=== PATIENT | female | born 1960 | race Caucasian/White ===

== ENCOUNTER 2024-10-06 13:25 | Outpatient (CLI) | payer MEDICARE, SELFPAY ==
--- NOTE | 2024-10-06 13:43 | ECG_ITS ---
Test Date: 2024-10-06 13:50:48 Measurements Intervals [place] Rate: 60 P: 60 CA: 189 QRS: 18 QRSD: 89 T: 30 QT: 432 QTc: 433 Interpretive Statements SINUS RHYTHM POSSIBLE RIGHT VENTRICULAR CONDUCTION DELAY BORDERLINE T WAVE ABNORMALITY- ANTERIOR LEADS BORDERLINE ECG No previous ECG available for comparison Electronically Signed On 10-06-2024 13:52:28 CDT by Lazaro Mata D.O.
--- OUTSIDE RECORDS SUMMARY | 2024-10-06 14:44 | XMS_ITS | Encounter Summary ---
Author Organization [employer] [facility] Address [address] [place] [address] Care Team Providers Care Block Out Machine Operator Name Role Phone Que Wallace MD Primary Care Provider [phone] Encounter Details Date Type Department Care Team (Latest Contact Info) Description 11/27/2000 Outpatient Historical [facility] Krystian Marcelo MD NO ADDRESS ON FILE Nonspecific (abnormal) findings on radiological and other examination of musculoskeletal system (Primary Dx) Social History Tobacco Use Types Packs/Day Years Used Date Smoking Tobacco: Never Assessed Comments Unknown Sex and Gender Information Value Date Recorded Sex Assigned at Not on file Legal Sex Female 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
--- OUTSIDE RECORDS SUMMARY | 2024-10-06 14:44 | XMS_ITS ---
Author Organization [facility] Address [address] [place] [address] Care Team Providers Care Application Support Administrator Name Role Phone Griffin Pascual Unavailable [phone] Social Media, Social Media Unavailable Unava ilable Deborah OSBORNE, Elzbieta Unavailable Allergies Allergen (clinical drug ingredient) Drug/Non Drug Allergy documented on EMR Reaction Allergy Type Onset Date Status moxifloxacin Avelox hives Drug Allergy Acti ve Levaquin hives Drug Allergy Active cephalexin Cephalexin nausea and vomiting Drug Allergy Active erythromycin Erythromycin diarrhea Drug Allergy A ctive Latex Latex anaphylaxis Allergy Active REASON FOR VISIT Telemedicine visit for medication renewal, c/o fibromyalgia pain, pain all over Medications Medication SIG (Take, Route, Frequency, Duration) Notes Start Date End Date Status Cyclobenzaprine HCl 10 MG 1 tablet Oral three times a day for 30 days As needed Active fentaNYL 12 MCG/HR 1 patch to skin Transdermal every 72 hours for 30 days NEEDS MYLAN BRAND DO NOT MARCK UNTIL 09/15/24 09/01/2024 Active Narcan 4 MG/0.1ML as directed Nasally for 1 days 05/27/2024 Active Lidocaine 5 % apply 4 g Externally Three times a day for 30 days 1 application to posterior neck and shoulder 3 x a day. Max 20g/ day. ovoid prolonged use in same area 06/17/2024 Active Repatha 140 MG/ML Subcutaneous for 84 Days Active Meclizine HCl 25 MG Oral for 10 Days Active Dupixent 300 MG/2ML Subcutaneous for 28 Days Active Sertraline HCl 100 MG Oral for 90 Days Active Lisinopril 5 MG Oral for 90 Days Active Celecoxib 100 MG Oral for 90 Days Active Gabapentin 100 MG TAKE 1 CAPSULE BY MOUTH TWICE A DAY NEEDED Oral for 30 Days Active Albuterol Sulfate HFA 108 (90 Base) MCG/ACT Inhalation for 25 Days Active Advair Diskus 250-50 MCG/ACT INHALE 1 PUFF BY MOUTH TWICE DAILY. RINSE MOUTH WITH WATER AFTER USE. DO NOT SWALLOW Inhalation for 30 Days Active Social History Tobacco Use: Social History Observation Description Date Details (start date - stop date) Former Smoker NA - NA Tobacco Control (Standard) Question Answer Notes Tobacco use: Former smoker Section Notes: SOAPP and COMM scores today low risk. 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 ; Lumbar pain M54.50 ; Thoracic spondylosis M47.814 ; Chronic pain syndrome G89.4 ; Cervical spondylosis M47.812 ; Leg length discrepancy M21.70 ; 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 ; Asthma J45.909 ; Hypertension I10 ; Other termite control service representative (current) drug therapy Z79.899 and 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 Assessments Encounter Date Diagnosis (ICD Code) Assessment Notes Treatment Notes Treatment Clinical Notes Section Notes 09/29/2024 Spondylolisthesis , lumbar region (ICD-10 - M43.16) 09/29/2024 Myalgia, other site (ICD-10 - M79.18) 09/29/2024 Congenital shortening of left lower limb (ICD-10 - Q72.812) 09/29/2024 Lumbar pain (ICD-10 - M54.50) 09/29/2024 Thoracic spondylosis (ICD-10 - M47.814) 09/29/2024 Chronic pain syndrome (ICD-10 - G89.4) Prescription for controlled substance sent to supervising physician for renewal 09/29/2024 Cervical spondylosis (ICD-10 - M47.812) 09/29/2024 Leg length discrepancy (ICD-10 - M21.70) 09/29/2024 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) 09/29/2024 Asthma (ICD-10 - J45.909) 09/29/2024 Hypertension (ICD-10 - I10) ICD F32.A-Depressi on: 09/29/2024 Other custodial (current) drug therapy (ICD-10 - Z79.899) 09/29/2024 Thoracic kyphosis (ICD-10 - M40.204) Plan Of Treatment Medication Medication Name Sig Start Date Stop Date Notes Cyclobenzaprine HCl 10 MG 1 tablet Oral three times a day for 30 days Treatment Notes Assessment Notes Chronic pain syndrome Prescription for c ontrolled substance sent to supervising physician for renewal Next Appt Details Follow Up: 4 Weeks, Reason: Provider Name:Elzbieta brooks, 10/27/2024 09:00:00 AM, [address] [place] [address], [address] [address], Progress Notes * Shilpa WAYNE KrunalDOB: [birth year] (64 yo F)Acc No.[id number]:09/29/2024 Patient: Shilpa BOYLE Appointment Provider: ISHAAN Hermosillo :1960 A ge:64 Y S ex:Female Date:09/29/2024 Address:[address] [place], [place] [id number] Subjective: * Chief Complaints: * 1 . Telemedicine visit for medication renewal. 2. C/o fibromyalgia pain, pain all over. * HPI: * Established Patient: Shilpa Wayne gives consent to virtual telemedicine visit today and verbalizes understanding that insurance will be billed accordingly. The visit was conducted through [employer] which is HIPAA compliant. Time was spent conducting visit, renewing and discussing medications, answering questions, reviewing chart and updating medical history, reviewing current treatment options, future treatments and scheduled procedures, pertinent lab vwork, and discussing follow up. Time spent with patient: 12 minutes. she was at home. * Pain Management:: Shilpa Wayne has an appointment for m edication renewal. She has chronic pain secondary to myofascial pain syndrome, hypermobility, rheumatoid arthritis, fibromyalgia. She has a leg length short on the left 12 mm that is lifted to 9 mm. Today her pain is shoulders, head, and neck. ?She rates VAS 4/10. She had radiofrequency ablation of her right thoracic spine T5,6,7,13 February 2024. She has had no falls or hospitalizations. S he will bring a copy of lab work and DEXA scan. Today her pain is low back, neck. She is renewed on Fentanyl 12mcg patches last rx fill was 09/15/24. UDS done 07/21/24 was compliant with medication use. UDS and PDMP are monitored regularly. * ROS: G eneral/Constitutional: Denies Change in appetite, Chills, Fatigue, Fever or Lightheadedness. ENT: Denies Tinnitus or Dysphagia. Ophthalmologic: Denies Blurred vision or change in vision. Neurological: denies gait abnormality, balance difficulty, dizziness, or loss of strength Psychological: denies depressed mood or change in mood Skin: admits skin rash; new dx of lichen systemic chronicus per bx. * Medical History: R heumatoid arthritis, Asthma - mild intermittent, Seasonal Allergies, Osteoarthritis, Depression. * Surgical History: B unionectomy- bilateral 1991, Sinus surgery- complicated by staph infection 2000, cholecystectomy 1980, Iridotomy 2007. * Hospitalization/Major Diagno stic Procedure: N o hospitalization since last visit . * Family History: F ather: 85 yrs, diagnosed with Heart disease. M other: 70 yrs, colon cancer. * Social History: T obacco Use: T obacco Control (Standard) T obacco use: F ormer smoker * Established Patient: S moking D o you smoke? N o Form Scores C ESD-R PMQ-R GPCOG Date 1 08/18/2023 C ESD-R Score 3 8 C ESD-R Risk H igh Risk (36 - 60) P MQ-R Score 3 2 P MQ-R Risk L ow Risk (0 - 34) G PCOG Score 9 G PCOG Risk N o Risk (9) C ESD-R PMQ-R GPCOG Testing Interval H igh Risk (every 2 months) C ESD-R PMQ-R GPCOG Next Test Due 0 08/18/2024 S OAPP Date 0 09/01/2024 S OAPP-R Score 1 4 S OAPP-R Risk L ow to Moderate Risk (10 - 15) S OAPP-R Testing Interval L ow to Moderate Risk (every 3 months) C OMM Date 0 09/01/2024 C OMM Score 5 C OMM Risk N egative (< 9) S OAPP and COMM scores today low risk. * Medications: T aking Albuterol Sulfate HFA 108 (90 Base) MCG/ACT Aerosol Solution Inhalation , Taking Advair Diskus 250-50 MCG/ACT Aerosol Powder Breath Activated INHALE 1 PUFF BY MOUTH TWICE DAILY. RINSE MOUTH WITH WATER AFTER USE. DO NOT SWALLOW Inhalation , Taking Gabapentin 100 MG Capsule TAKE 1 CAPSULE BY MOUTH TWICE A DAY NEEDED Oral , Taking Cyclobenzaprine HCl 10 MG Tablet TAKE 1 TABLET BY MOUTH THREE TIMES A DAY NEEDED Oral , Taking Lisinopril 5 MG Tablet Oral , Taking Celecoxib 100 MG Capsule Oral , Taking Dupixent 300 MG/2ML Solution Pen-injector Subcutaneous , Taking Sertraline HCl 100 MG Tablet Oral , Taking Meclizine HCl 25 MG Tablet Oral , Taking Repatha 140 MG/ML Solution Prefilled Syringe Subcutaneous , Taking Narcan 4 MG/0.1ML Liquid as directed Nasally , Taking Lidocaine 5 % Ointment apply 4 g Externally Three times a day 1 application to posterior neck and shoulder 3 x a day. Max 20g/ day. ovoid prolonged use in same area, Taking fentaNYL 12 MCG/HR Patch 72 Hour 1 patch to skin Transdermal every 72 hours , Notes to Pharmacist: NEEDS MYLAN BRAND DO NOT MARCK UNTIL 09/15/24 * Allergies: L atex: anaphylaxis - Allergy - Criticality Unknown, Levaquin: hives - Allergy - Criticality Unknown, Avelox: hives - Allergy - Criticality Unknown, Cephalexin: nausea and vomiting - Allergy - Criticality Unknown, Erythromycin: diarrhea. Objective: * Vitals: H t: 5 ft 4in, Wt:165lbs, Pain scale:41-10, BMI:28.32Index, Ht-cm: 162.56 cm, Wt- k.84 kg, Body Surface Area: 1.84. * Physical Examination: P atient is alert and oriented x3 in NAD. Questions are answered appropriately. No slurred speech. Respirations are non-labored. Patient sits comfortably during virtual visit today. Assessment: * Assessment: 1. S pondylolisthesis, lumbar region - M43.16 (Primary) 2 . M yalgia, other site - M79.18 3 . C ongenital shortening of left lower limb - Q72.812 ? 4 . L umbar pain - M54.50 5 . T horacic spondylosis - M47.814 & #160; 6 . C hronic pain syndrome - G89.4 7 . C ervical spondylosis - M47.812 8 . L eg length discrepancy - M21.70 9 . E hlers-Danlos syndrome - Q79.60 1 0. A sthma - J45.909 1 1. H ypertension - I10 N otes :ICD F32.A-Depression: 1 2. O ther termite control service representative (current) drug therapy - Z79.899 1 3.?Thoracic kyphosis - M40.204 Plan: * Treatment: 2. C hronic pain syndrome Notes: Prescription for controlled substance sent to supervising physician for renewal * Follow Up: 4 Weeks * Billing Information: * Visit Code: 60988 Office Visit, Est Pt., Level 3. * Procedure Codes: * Electronic signature of ISHAAN Tamayo PA-C on 10/06/2024 at 02:43 PM CDT Sign off status: Pending * Appointment Provider: ISHAAN Hermosillo Date: 0 09/29/2024 Generated for Printing/Faxing/eTransmitting on: 0 10/06/2024 02:43 PM CDT History and Physical Notes * HPI (History of Present Illness) Category Sub-Category Detail Notes Category Not es *Pain Management: Shilpa Wayne has an appointment for medication renewal. She has chronic pain secondary to myofascial pain syndrome, hypermobility, rheumatoid arthritis, fibromyalgia. She has a leg length short on the left 12 mm that is lifted to 9 mm. Today her pain is shoulders, head, and neck. She rates VAS 4/10. She had radiofrequency ablation of her right thoracic spine T5,6,7,13 February 2024. She has had no falls or hospitalizations. She will bring a copy of lab work and DEXA scan. Today her pain is low back, neck. She is renewed on Fentanyl 12mcg patches last rx fill was 09/15/24. UDS done 07/21/24 was compliant with medication use. UDS and PDMP are monitored regularly. *Established Patient Shilpa Wayne gives consent to virtual telemedicine visit today and verbalizes understanding that insurance will be billed accordingly. The visit was conducted through [employer] which is HIPAA compliant. Time was spent conducting visit, renewing and discussing medications, answering questions, reviewing chart and updating medical history, reviewing current treatment options, future treatments and scheduled procedures, pertinent lab vwork, and discussing follow up. Time spent with patient: 12 minutes. she was at home. Physical Examination Category Sub-Category Detail Notes Section Note s Patient is aler t and oriented x3 in NAD. Questions are answered appropriately. No slurred speech. Respirations are non-labored. Patient sits comfortably during virtual visit today.
--- OUTSIDE RECORDS SUMMARY | 2024-10-06 14:44 | XMS_ITS | Encounter Summary ---
Author Organization [facility] Address [address] [place] [address] Care Team Providers Care Rigger Up Name Role Phone , Generic Conversion Primary Care Provider Unavailable Md Generic Conversion Primary Care Provider Unavailable Que Wallace MD Primary Care Provider Unav yany Silva II, MD, Beni Villanueva Primary Care Provider Encounter Details Date Type Department Care Team (Late st Contact Info) Description 12/21/2015 Abstract [facility] AT [address] [facility] [id number] Social History Tobacco Use Types Packs/Day Years Used Date Smoking Tobacco: Never Assessed Comments Unknown Sex and Gender Information Value Date Recorded Sex Assigned at Not on file Legal Sex Female 11:15 AM CDT Gender Identity Not on file Sexual Orientation Not on file documented as of this encounter Plan of Treatment Upcoming Encounters Date Type Department Care Team (Late st Contact Info) Description 10/13/2024 8:30 AM CDT Office Visit [facility] - [place] [address] [place] [phone] Beni Silva II, MD [address] [place] [address] 01/25/2025 9:15 AM CDT Office Visit [facility] [address] [place] [address] Anton Jackson MD Three [facility], [address] [place] [address] 01/26/2025 8:30 AM CDT Office Visit [facility] Family Medicine - [address] [place] [phone] Beni Silva II, MD [address] [place], [place] [phone] documented as of this encounter Visit Diagnoses Not on filedocumented in this encounter Care Teams Rigger Up Relationship Specialty Start Date End Date Md Generic Conversion, PCP - General 12/26/15 Md Generic Conversion, PCP - General 09/17/14 Que Wallace MD PCP - General FAMILY PRACTICE 02/27/21 04/26/21 Beni Silva II, MD [address] [place] [phone] PCP - General FAMILY PRACTICE 04/27/21 documented as of this encounter
--- OUTSIDE RECORDS SUMMARY | 2024-10-06 14:44 | XMS_ITS | Encounter Summary ---
Author Organization [facility] Address 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
--- OUTSIDE RECORDS SUMMARY | 2024-10-06 14:44 | XMS_ITS | Encounter Summary ---
Author Organization [employer] [facility] [facility] Address 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
--- OUTSIDE RECORDS SUMMARY | 2024-10-06 14:44 | XMS_ITS | Encounter Summary ---
Author Organization [employer] [facility] Address 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 Gender Identity Not on file Sexual Orientation Not on file documented as of this encounter Plan of Treatment Not on file documented as of this encounter Procedures Procedure Name Priority Date/Time Associated Diagnosis Comments POC CREATININE Routine 07/23/2008 10:53 AM FIBER PRODUCT CUTTING MACHINE OPERATOR documented in this encounter Results * (ABNORMAL) POC CREATININE (07/23/2008 10:53 AM FIBER PRODUCT CUTTING MACHINE OPERATOR) CREATININE POC 1.1 0.6 - 1.3 mg/dL [facility] Comment: The calculation for the estimated GFR on the i-STAT POC instrument has been changed to correspond to the IDMS-traceable MDRD Study, upon the recommendation of the assistant operator of the i-STAT instrument. The change was effective in our laboratory 06/14/2008. The impact of this change to the estimated GFR is minimal. This calculation is used by the main laboratory methodology also. GFR, >60 >=60 mL/min/1.7 sq meter [facility] GFR 53(L) >=60 mL/min/1.7 sq meter [facility] Capillary blood specimen (specimen) 07/23/2008 10:53 AM FIBER PRODUCT CUTTING MACHINE OPERATOR 07/23/2008 10:53 AM FIBER PRODUCT CUTTING MACHINE OPERATOR us You Priest MD POINT OF CARE TESTING Edited INTERFACE SYSTEM Refer to clinic/hospital department [facility] CLIA# [id number] [address] [place] [address] documented in this encounter Visit Diagnoses Diagnosis Myalgia and myositis, unspecified Mylagia and myositis, unspecified documented in this encounter Care Teams Crusher Plant Operator Relationship Specialty Start Date End Date Que Wallace MD [address] [place] [phone] PCP - General Family Practice 11/07/20 documented as of this encounter
--- OUTSIDE RECORDS SUMMARY | 2024-10-06 14:44 | XMS_ITS | Encounter Summary ---
Author Organization [facility] Address [address] [place] [address] Care Team Providers Care Ferryboat Helper Name Role Phone Que Wallace MD Primary Care Provider [phone] Encounter Details Date Type Department Care Team (Late st Contact Info) Description 11/26/2000 Outpatient Historical Division of Neurology [address] [address] Preet Ulloa MD [address] [facility] [address] [facility] [address] [place] [address] Social History Tobacco Use Types Packs/Day Years Used Date Smoking Tobacco: Never Assessed Comments Unknown Sex and Gender Information Value Date Recorded Sex Assigned at Not on file Legal 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
--- OUTSIDE RECORDS SUMMARY | 2024-10-06 14:44 | XMS_ITS | Patient Health Record ---
Author Organization [facility] Address [address] [id number] Care Team Providers Care Glue Machine Operator Name Role Phone Chet Bennett, Eagle Unavailable TERESA SHORT Unavailable Unavailable ALLERGIES Allergen (clinical drug ingredient) Drug/Non Drug Allergy documented on EMR Reaction Allergy Type Onset Date Status erythromycin gastric distress Drug Allergy Active Levaquin joint pain Drug Allergy Active REASON FOR REFERRAL No Information MEDICATIONS Medication SIG (Take, Route, Frequency, Duration) Notes Start Date End Date Status Vicodin 500 mg-7.5 mg 1 tab(s) orally qi d for 30 days 10/27/2008 07/08/2024 Active sertraline 100 mg 1 tab(s) orally once a day for 30 day(s) 07/08/2024 07/08/2024 Active tiZANidine 4 mg 1 tab orally tid for 90 days 07/08/2024 07/08/2024 Active Os-Moreno with D 500 mg-125 units 1 tab(s) orally bid 07/08/2024 07/08/2024 Active Lyrica 50 mg 1 cap(s) orally bid for 90 days 04/13/2009 07/08/2024 Active propoxyphene napsylate 100 mg 1 tab(s) orally qid for 90 days 07/08/2024 07/08/2024 Active Cymbalta 60MG 1 tab orally once a day for 30 day(s) 05/02/2009 07/08/2024 Active CeleBREX 200 mg 2 cap(s) orally once a day for 30 day(s) 05/03/2009 07/08/2024 Active ALPRAZolam 0.5 mg 1 tab(s) orally qid for 30 day(s) 07/08/2024 07/08/2024 Active SOCIAL HISTORY Sex Assigned At : Social History Observation Description Sex Assigned At Unknown PROBLEMS Problem Type ICD Code Onset Dates Problem Status W/U Status Risk SNOMED Code Notes Problem Rheumatoid Arthritis (714.0) Active confirmed Rheumatoid arthritis (12177775) Problem MONITOR MED (V58.69) Active confirmed Long-term drug therapy (677949769) Problem FMS (729.1) Active confirmed Muscle lance n (42773158) Problem Osteoarthrosis (715.09) Active confirmed Osteoarthrosis (792734349) PLAN OF TREATMENT No Information Insurance Providers Payer Name Payer Address Payer Phone Subscriber Number Group Number Insured Name Patient Relationship to Insured Coverage Start Date Coverage End Date MEDICARE ASSIGNMENT [address] [place] [address] [phone] [id number] MELY TITUS Self - patient is the insured [facility] [address] [place] [phone] [id number] MELY TITUS Self - patient is the insured 8 MEDICAL (GENERAL) HISTORY Medical History History ICD Code itching migraine headache tendonitis blurred vision vision - flashes Ringing in ears hayfever sinus problems dizziness swollen glands in neck breast lump swelling of ankles/feet varicose veins pneumonia bronchitis constipation gas hemorrhoids abnormal pap smear extreme menstrual pain vaginal discharge Surgical History Surgery Date(Month/Year) gallbladder surgery removal 1980 bunionectomy 1992 bunionectomy revision 193
--- OUTSIDE RECORDS SUMMARY | 2024-10-06 14:44 | XMS_ITS | Encounter Summary ---
Author Organization [facility] Address 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
--- OUTSIDE RECORDS SUMMARY | 2024-10-06 14:44 | XMS_ITS | Referral Summary ---
Author Organization [facility] [address] Address [facility] [place] [address] Phone Care Team Providers Care Block Breaker Name Role Phone Sawyer Lyon MD Unavailable [phone] Shira SOLORZANO MD, Beni Hernandez Primary Care Provid er Andre Hernandez MD Unavailable [phone] OchAnton sprague MD Unavailable [phone] Allergies Active Allergy Reactions Criticality Noted Date Comments Cephalexin Stomach upset,Diarrhea Reaction: Abdominal pain, Diarrhea, Epinephrine Stomach upset,Dizziness Low Reaction: Dizziness, Abdominal pain, Pt states it was injected into blood vessel. Erythromycin Diarrhea,Stomach upset Low Reaction: Abdominal pain, Diarrhea, Latex Other (See comments),Swelling Reaction: Bleeding, Swelling, Levofloxacin Hives,Itching,Joint pain High 02/07/2010 Reaction: Itching, Hives, Moxifloxacin Itching,Flushing (skin) Reaction: Itching, Van syndrome, Moxifloxacin Hcl Hives Medium 10/30/2017 Medications ALPRAZolam (XANAX) 0.5 mg tablet take 1 tablet by oral route 4 times every day as needed 0 0 06/15/20 14 Active sertraline (ZOLOFT) 100 mg tablet take 1 tablet by oral route every day 0 0 06/15/20 14 Active colesevelam (WELCHOL) 625 mg tablet take 3 Tablet by oral route 2 times every day with a meal and liquid 0 0 06/15/20 14 Active diclofenac sodium (VOLTAREN) 1 % gel apply 2 Gram by topical route 4 times every day to each hand as needed 0 0 06/15/20 14 Active metroNIDAZOLE (NORITATE) 1 % cream apply by topical route every day a thin layer to the affected area(s) 0 0 06/15/20 14 Active Additional Information Patient taking differently:1 %As needed, Reported on 10/10/2021 triamcinolone (KENALOG) 0.1 % cream apply by topical route 2 times every day a thin layer to the affected area(s) 0 0 06/15/20 14 Active omega 1-dqu-zrg-fish oil (FISH OIL) 100-160-1,000 mg capsule 0 0 07/16/19 17 Active meclizine (ANTIVERT) 25 mg tablet take 1 tablet by oral route 3 times every day as needed 0 0 07/16/19 17 Active docusate sodium (COLACE) 100 mg capsule take 1 capsule by oral route every day at bedtime as needed 0 0 07/16/19 17 Active Lactobacillus acidophilus (PROBIOTIC) 10 billion cell capsule spray 1 capsule by oral route every day for 1 day 0 0 07/16/19 17 Active biotin 1 mg capsule 1 mg. 0 0 07/16/19 17 Active vrsiy-e-heeiuchtq dase (BEANO) 150 unit tablet As needed 11/05/19 13 Active saliva substitute agent (BIOTENE) mouthwashIndicati ons:Mouth Irritation Apply to the mouth or throat daily. 11/05/19 13 Active HYDROcodone-aceta minophen (NORCO) 10-325 mg per tabletIndications :Pain TAKE HALF TO ONE TABLET BY MOUTH THREE TIMES DAILY NEEDED FOR 30 DAYS. 0 12/14/19 18 Active hydroquinone 4 % cream as needed 08/31/19 10 Active hydrOXYzine (ATARAX) 10 mg tablet TAKE ONE TABLET BY MOUTH EVERY 8 HOURS NEEDED FOR ITCHING 0 12/10/19 18 Active rizatriptan (MAXALT) 10 mg tabletIndications :Migraine Not often 10/10/19 13 Active polyethylene glycol (MIRALAX) 17 gram/dose powder USE DIRECTED. 11/05/19 13 Active guaiFENesin ER (MUCINEX) 600 mg 12 hr tablet daily. 11/05/19 13 Active hydrocortisone 1 % cream as needed Active calcium carbonate/simethi cone (ROLAIDS PLUS ANTI-GAS ORAL) as needed Active INV-[facility] normal saline (2016-03-165/X4P- 001-RCCA) 0.65 % nasal spray USE DIRECTED. 11/05/19 13 Active sucralfate (CARAFATE) 1 gram tablet as needed 11/05/19 13 Active vit C-s.mcgee-celery -grape sd 80-538-35-75-20 mg capsule Active esomeprazole DR (NexIUM) 40 mg capsule Take 1 capsule (40 mg total) by mouth daily 30 capsule 3 11/01/19 19 Active nystatin 100,000 unit/mL suspension Apply to the mouth or throat as needed 11/28/19 17 Active glucosamine/chond ro moscoso A (COSAMIN DS ORAL) Take by mouth Active celecoxib (CeleBREX) 100 mg capsuleIndication s:Rheumatoid Arthritis Take 1 capsule (100 mg total) by mouth 2 (two) times a day 60 capsule 05/29/20 19 Active lidocaine (XYLOCAINE) 5 % ointment 05/11/20 19 Active calcium carbonate-vitamin D3 1,250mg (500mg elemental) - 200 units per tablet Take by mouth Active traZODone (DESYREL) 150 mg tablet Take 1 tablet (150 mg total) by mouth nightly 30 tablet 09/30/19 20 Active albuterol 2.5 mg /3 mL (0.083 %) nebulizer solution Take 3 mL (2.5 mg total) by nebulization 4 (four) times a day For treatment of ashtma , J45.909 360 vial 3 04/05/20 20 Active fentaNYL (DURAGESIC) 12 mcg/hr 03/15/20 20 Active tiZANidine (ZANAFLEX) 4 mg tablet 04/11/20 20 Active cyclobenzaprine (FLEXERIL) 10 mg tablet 09/10/19 21 Active nortriptyline (PAMELOR) 10 mg capsule 08/16/19 21 Active cholecalciferol (VITAMIN D-3) 25 mcg (1,000 unit) tablet Take 1 tablet (1,000 Units total) by mouth daily Active clobetasoL (TEMOVATE) 0.05 % ointment APPLY 2 TIMES DAILY 07/24/19 22 Active halobetasol (ULTRAVATE) 0.05 % ointment 03/04/20 22 Active lisinopriL (PRINIVIL,ZESTRIL ) 5 mg tablet 01/25/20 22 Active naloxone (NARCAN) 4 mg/actuation spray,non-aerosol 11/14/19 22 Active Repatha Syringe syringe syringe INJECT 1 SYRINGE EVERY 14 DAYS 06/04/20 22 Active ezetimibe (ZETIA) 10 mg tablet Take 1 tablet (10 mg total) by mouth daily 05/07/20 22 Active fluticasone propionate (FLONASE) 50 mcg/actuation nasal spray Administer 2 sprays into each nostril daily 16 g 3 07/05/20 22 Active Dupixent Pen pen injector 07/19/19 23 Active ipratropium-albut Wojciech (DUO-NEB) 0.5-2.5 mg/3 mL nebulizer solutionIndicatio ns:Chronic Obstructive Pulmonary Disease with Bronchospasms Take 3 mL by nebulization every 6 (six) hours 360 mL 3 10/20/19 23 Active sodium chloride 5 % ophthalmic ointmentIndicatio ns:Corneal Edema Apply 1/2 inch into both eyes at nighttime 3.5 g 11 02/02/20 23 Active mupirocin (BACTROBAN) 2 % ointment 05/13/20 23 Active Ozempic 0.25 mg or 0.5 mg (2 mg/3 mL) pen injector injection Active albuterol HFA (Ventolin HFA) 90 mcg/actuation inhalerIndication s:Moderate persistent asthma without complication Inhale 2 puffs every 6 (six) hours as needed for wheezing or shortness of breath 8.5 g 3 08/30/19 24 Active montelukast (SINGULAIR) 10 mg tablet TAKE 1 TABLET(10 MG) BY MOUTH DAILY 90 tablet 04/23/20 24 Active Advair Diskus 250-50 mcg/dose diskus inhaler INHALE 1 PUFF BY MOUTH TWICE DAILY. RINSE MOUTH WITH WATER AFTER USE. DO NOT SWALLOW 180 each 1 04/28/20 24 Active Active Problems Patient Care Coordination No te Formatting of this note migh t be different from the original. Referring provider: Dr. Celio Hernandez Ms. Mely Wayne is a 63-year-old with a hiatal hernia. 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 On 02/13/2023 the patient underwent a chest CT which showed mild interlobular septal thickening which may represent early nonspecific interstitial pneumonia pattern. There was a large mixed hiatal/paraesophageal hernia. On 06/07/2023 the patient underwent an esophagram which noted a large hiatal hernia containing the stomach. There were tertiary contractions that delayed passage of contrast into the intrathoracic stomach. Reflux was demonstrated with Valsalva. On 07/26/2019 the patient underwent pulmonary function testing which showed an FEV1 of 76% of predicted and a DLCO of 49% of predicted. Patient has a BMI of 28.08. Her prior abdominal surgeries include an appendectomy and cholecystectomy. Patient is a never smoker. Patient presents today for further surgical evaluation. Problem Noted Date Diagnosed Date Marijuana use 05/14/2024 Obstructive sleep apnea 02/05/2023 Hiatal hernia 02/05/2023 Nonsmoker 02/05/2023 Endothelial corneal dystrophy of both eyes 01/02 Assessment & Plan (02/01/2023 10:59 AM CDT): -pt c/o fluctuating vision throughout the day with multiple pairs of glasses from [email or web address] -reports she feels they can't get her MRx correct; some SRx help, some do not -she reports fluctuations have improved since starting gisella colby -pt does have guttae both eyes (OU); likely the cause of fluctuations in vision -continue gisella-128 colby at bedtime (qhs) both eyes (OU) -rechecked MRx again today; minimal change from last time; released MRx today -RTC 4 months ant seg check Assessment & Plan (01/03/2023 8:17 AM CDT): -pt c/o fluctuating vision throughout the day with multiple pairs of glasses from [email or web address] -reports she feels they can't get her MRx correct; some SRx help, some do not -pt does have guttae right eye (OD)>>left eye (OS); wonder if this is causing fluctuations in vision -recommend gisella-128 colby at bedtime (qhs) both eyes (OU) -checked MRx today however will hold on releasing to see if fluctuations improve on gisella -RTC 4-6 weeks anterior seg check and MRx check Restrictive lung disease 10/19/2022 Non-seasonal allergic rhinitis due to pollen Hypersomnia 10/19/2022 Prurigo nodularis 09/15/2021 Prediabetes 06/08/2021 Sinus pressure 02/06/2021 Meibomian gland dysfunction (MGD) of both eyes 1 Assessment & Plan (04/22/2019 10:18 AM CDT): Digital massage Age-related nuclear cataract of both eyes 2018 Assessment & Plan (04/22/2019 10:18 AM CDT): NVS, monitor Chronic obstructive pulmonary disease 03/26/2019 Pulmonary air trapping 11/13/2018 Chronic maxillary sinusitis 11/13/2018 Fatigue 02/25/2018 Assessment & Plan (02/25/2018 2:05 PM CDT): She has had a constelation of symptoms over the last month including worsened fatigue, dizziness, sore throat, swallowing difficultues, ear pressure, fever/chills, intermittent sob. Exam of ear and pharynx is unremarkable. Uncertain etiology although may be a viral syndrome. Darrick obtain labs a sbeow. Pt reports she has an appt with dr. sheriff next week. She has had a constellation of symptoms over last month including worsen fatigue, dizziness, sore throat, swallowing difficulties, ear pressure, fever/chills, and intermittent shortness of breath. Exam is unrevealing including cardiopulmonary exam, ears, and pharynx which are on on all unremarkable. Etiology of her symptoms are uncertain although she certainly could have a viral syndrome. Will obtain labs as below. Will also obtain a chest x-ray. She does report she has an appointment with Dr. Wallace next week. Right foot pain 02/25/2018 Assessment & Plan (02/25/2018 2:11 PM CDT): She did suffer a fall last evening and landed on her foot awkwardly per her report. The dorsum of her right foot does have a bruise on it and is tender to touch although she does have good range of motion throughout the toes and ankle. She is able to place pressure on the right foot and squeeze test really does not elicit much pain. Obtain x-ray of the right foot for further evaluation. 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 12/23/2017 Assessment & Plan (04/22/2019 10:16 AM CDT): Open PIs Stable Dry eye syndrome of bilateral lacrimal glands Assessment & Plan (04/22/2019 10:16 AM CDT): Warm compresses, digital massage, flax seed oil Retaine QID both eyes (OU) Retain COLBY at bedtime (QHS) Stressed good hydration Keratoconjunctivitis sicca of both eyes 12/24/19 18 Trichiasis of right lower eyelid 12/23/2017 Migraine with aura 08/15/2016 Mixed anxiety depressive disorder 08/15/2016 Allergic rhinitis 06/19/2016 Moderate persistent asthma without complication 06/19/2016 Dizziness 06/07/2016 Hyperlipidemia 06/07/2016 Insomnia 06/07/2016 Rosacea 06/07/2016 Diplopia 12/29/2015 Retinal hemorrhage 12/29/2015 Other specified menopausal and perimenopausal di sorders 11/09/2015 Breast pain in female 11/03/2015 Fibromyositis 11/03/2015 Pain of breast 08/25/2014 Gastroesophageal reflux disease 06/16/2014 Overview (10/11/2016): GERD Depression 06/16/2014 Overview (12/23/2017): Depression Anxiety 06/16/2014 Overview (10/11/2016): Anxiety Rheumatoid arthritis 06/16/2014 Overview (12/23/2017): Prev diag with RA by Dr. Cardenas and has tried and failed several dmards (MTX, HCQ, leflunomide, AZA). Had reaction to remicade with elevated Bp. Previous on kineret and had neurologic side effects per pt. Pt not wanting additional biologics. Has no synovitis on exam. US R hand reveals mild/moderate inflammatory changes with power doppler (11/2016). Has erosive changes over R 3rd and 4th MCP joints per xray (07/2016). SSZ caused hot flashes and made her feel ill Leflunomide restarted (01/15/17) although pt never took due to concerns of side effects On celebrex 100 mg daily-bid Overview: Plaquenil kineret mtx arava remicade all problematic 03/10/2010 avise MCV negative Assessment & Plan (01/13/2019 2:05 PM CDT): She still has generalized pain essentially everywhere which is difficult to determine what is from her rheumatoid arthritis versus her fibromyalgia. Previously declined any specific medications for her rheumatoid arthritis due to concerns of potential adverse effects, started leflunomide 10 mg daily after last visit but discontinued due to side effects. Based upon this response, once again declines any specific RA treatment. Will continue Celebrex 100 mg daily to b.i.d. as needed. Follow up 3 months or sooner as needed. Assessment & Plan (12/24/2018 3:52 PM CDT): She still has generalized pain essentially everywhere which is difficult to determine what is from her rheumatoid arthritis versus her fibromyalgia. Previous synovitis improved on exam today though likely the result of recent steroid course. Previously declined any specific medications for her rheumatoid arthritis due to concerns of potential adverse effects, but at this time feels that treatment is warranted. Last in 2016 was prescribed leflunomide as it does not seem certain that she was on this in the past, she is willing to try this now. Will begin leflunomide 10 mg daily; discussed potential side effects including diarrhea and warned to watch for development of any rash. Obtain labs today as below. Follow up in 4 weeks. Continue Celebrex 100 mg daily to b.i.d. as needed. Assessment & Plan (07/23/2018 1:47 PM STEERER): She still has generalized pain essentially everywhere which is difficult to determine what is from her rheumatoid arthritis versus her fibromyalgia. She does appear to have some mild synovitis over several MCP joints on exam and is tender virtually everywhere. She still is not wanting any specific medications for her rheumatoid arthritis due to concerns of potential adverse effects and it is noted that she has had adverse effects to several medications previously prescribed for her rheumatoid arthritis in the past. States that her joints would have to get a lot worse before she would consider trying a new medication. Continue Celebrex 100 mg daily to b.i.d. as needed. Assessment & Plan (02/25/2018 2:02 PM CDT): She still has generalized pain essentially everywhere which is difficult to determine what is from her rheumatoid arthritis versus her fibromyalgia. She does appear to have some mild synovitis over several MCP joints on exam and is tender virtually everywhere. She still is not wanting any specific medications for her rheumatoid arthritis due to concerns of potential adverse effects and it is noted that she has had adverse effects to several medications previously prescribed for her rheumatoid arthritis in the past. Continue Celebrex 100 mg daily to b.i.d. as needed. Assessment & Plan (09/05/2017 2:10 PM STEERER): Still with generalized pain everywhere and is difficult to determine what is RA vs her FM . Has no obvious synovitis on exam although has tenderness throughout joints and muscle. Pt not wanting any specific medications for her RA due to concern of adverse effects. She had been given a script for leflunomide in past although never filled and is wanting to defer at this time. If symptoms progress she will reconsider. Cont celebrex 100 mg daily-bid. Assessment & Plan (03/19/2017 11:07 AM CDT): CDAI 17: Moderate disease activity Pt not on any specific RA meds. Pt did not start leflunomide as prescribed last visit due to concern of potential side effects. Pt did complete a 7 day course of prednisone 20 mg which she did not feel helped while taking although symptoms improved after she completed course. Pt not wanting any additional treatment at this time due to her concerns of previous side effects on prior meds. Nonetheless exam does not reveal any obvious synovitis. She does have gen pain, tenderness although it is difficult to determine what is RA vs fibro. Will cont celebrex 100 mg daily- bid. At pt request will hold off on any additional specific RA treatment although she does state she will reconsider leflunomide if symptoms progress. F/u 3 months. Assessment & Plan (01/15/2017 3:28 PM CDT): CDAI 42 Unable to tolerate SSZ due to hot flashes and overall ill feeling. Still with generalized pain and is tender to touch everywhere although is difficult to determine what is from her RA and fibro. Has no obvious synovitis on exam. Discussed treatment options with pt and she still does not want to pursue additional biologics. Will do another trial of leflunomide 10 mg daily for her Ra. Is noted pt believes she was on in past although is uncertain. Pt does not want to start this for another month or so due to feeling ill from the SSZ and wants time to recover. Cont celebrex 100 mg daily-bid. Will obtain labs as below. F/u 2 months Assessment & Plan (12/11/2016 5:38 PM CDT): Prev diag with RA by Dr. Cardenas and has tried and failed several dmards (MTX, HCQ, leflunomide, AZA). Had reaction to remicade with elevated Bp. Previous on kineret with neurologic side effects. Pt not wanting additional biologics. Has no synovitis on exam. US R hand reveals mild/moderate inflammatory changes with power doppler (11/2016). Has erosive changes over R 3rd and 4th MCP joints per xray (07/2016). She does have tenderness to palpation everywhere on exam although this is difficult to appreciate due to the amount of pain she has virtually everywhere. I discussed with her treatment options including biologic agents which she does not want to pursue at this time as she is concerned about possible side effects. We will therefore initiate sulfasalazine 500 mg b.i.d. to see if this could help with her joint complaints. I informed her that this would help with her overall pain as she does have quite a bit of fibromyalgia type pain. We will obtain labs as be low. Will follow up in 4 weeks. Asthma 06/16/2014 Overview (10/11/2016): Asthma Irritable bowel syndrome 06/16/2014 Overview (12/23/2017): IBS Raynaud's phenomenon 06/16/2014 Overview (10/11/2016): Raynauds phenomenon Benign essential hypertension 10/09/2012 Chronic fatigue syndrome 10/09/2012 Pure hypercholesterolemia 10/09/2012 Moderate episode of recurrent major depressive d isorder 09/23/2012 Somatoform disorder 09/23/2012 Fibromyalgia 10/29/2011 Assessment & Plan (01/12/2019 4:52 PM CDT): She still has widespread pain, fatigue, and poor sleeping patterns. She does follow-up with Pain Management and has tried several medications in the past without any success. Physical therapy is the only thing that provides relief, working with insurance to try to be able to return to PT now. Assessment & Plan (12/24/2018 3:51 PM CDT): She still has widespread pain, fatigue, and poor sleeping patterns. She does follow-up with Pain Management and has tried several medications in the past without any success. Physical therapy is the only thing that provides relief, working with insurance to try to be able to return to PT now. Assessment & Plan (07/23/2018 1:47 PM STEERER): She still has widespread pain, fatigue, and poor sleeping patterns. She does follow-up with Pain Management and has tried several medications in the past without any success. Currently going to physical therapy for her neck and trying to participate in exercise at home, encouraged to continue these activities. Assessment & Plan (02/25/2018 2:07 PM CDT): She still has widespread pain, fatigue, and poor sleeping patterns. She does follow-up with Pain Management and has tried several medications in the past without any success. She really does not participate in any activity or exercise and it is noted that she was referred to physical therapy last visit although never went as she reports she did not feel well enough to do this. She was encouraged to try to precipitate in low-impact exercises. Assessment & Plan (09/05/2017 2:17 PM STEERER): Has widespread pain, fatigue, poor sleep patterns. I suspect this is causing a large majority of her symptoms. Follows with pain management and has tried several meds in past without success. Really is not active at all and not doing any exercise. Had recently done home health PT and will make another referral for home health for PT to help mobility and hopefully pain. Assessment & Plan (03/19/2017 11:08 AM CDT): Has widespread pain, fatigue, poor sleep patterns. I suspect this is causing a large majority of her symptoms. Follows with pain management and has tried several meds in past without success. Was referred to PT per pain management although pt yet to start. Assessment & Plan (01/15/2017 3:30 PM CDT): Has widespread pain, fatigue, poor sleep patterns. I suspect this is causing a large majority of her symptoms. Follows with pain management and has tried several meds in past without success. Assessment & Plan (12/11/2016 5:40 PM CDT): She has widespread pain fatigue and poor sleeping patterns she has generalized tenderness to palpation virtually everywhere to touch even with light palpation. I suspect that her fibromyalgia is causing the large majority of her pain complaints. She does follow with Pain Management and has tried several medications in the past without success. She was strongly encouraged to participate in exercise which can benefit chronic pain. Joint pain 10/29/2011 Polyarthritis 02/20/2010 Overview (12/23/2017): Overview: 02/20/2010 MCV neg Other and unspecified nonspecific immunological findings 02/08/2010 Overview (12/23/2017): Overview: Positive BARMAID normal CRP Raynaud's disease 02/07/2010 Immunizations Immunization Administration Dates Next Due Influenza, Quadrivalent, Spl it, Preservative Free, Intramuscular 03/11/2020,03/31/2018,04/01/2017 Influenza, Trivalent, IM (MDV) 05/01/2014,2012 Influenza, Trivalent, Preser vative Free, Intramuscular 04/13/2016,04/21/2015 Social History Tobacco Use Types Packs/Day Years Used Date Smoking Tobacco: Never Smokeless Tobacco: Never Tobacco Cessation:Counseling Given: Not Answered Alcohol Use Standard Drinks/Week Comments Not Currently 0 (1 standard drink = 0.6 oz pur e alcohol) Comments Unknown Sex and Gender Information Value Date Recorded Sex Assigned at Not on file Legal Sex Female 11:32 PM STEERER Gender Identity Not on file Sexual Orientation Not on file Last Filed Vital Signs Vital Sign Reading Time Taken Comments Blood Pressure 125/73 05/14/2024 1:34 PM STEERER Pulse 73 05/14/2024 1:34 PM STEERER Temperature 36.3 C (97.4 F) 11/26/2023 9:21 AM CDT Respiratory Rate 16 05/14/2024 1:34 PM STEERER Oxygen Saturation 97% 05/14/2024 1:34 PM STEERER Inhaled Oxygen Concentration - - Weight 73.4 kg (161 lb 12.8 oz) 05/14/2024 1:34 PM STEERER Height 163.8 cm (5' 4.5 ) 05/14/2024 1:34 PM STEERER Body Mass Index 27.34 05/14/2024 1:34 PM STEERER Plan of Treatment Not on file Procedures Procedure Name Priority Date/Time Associated Diagnosis Comments HEPATITIS C ANTIBODY Routine 07/13/2016 12:51 PM STEERER from Last 3 Months or Most Recently Relevant to Health Maintenance Results * Hepatitis C antibody (07/13/2016 12:51 PM STEERER) SIGNAL TO CUT-OFF 0.03 <1.00 [facility] Comment: Test performed at [facility] [address] [address] Director: ALEXANDRU RODRIGUEZ DO,MPH Hep C Ab NON-REACT SHEILA NON-REACT SHEILA [facility] 07/13/2016 12:5 1 PM STEERER [facility] MICROBIOLOGY - GENERAL OR DERABLES Final Result [facility] from Last 3 Months or Most Recently Relevant to Health Maintenance Insurance MEDICARE [facility] Address: [address] [place] [address] MEDICARE [employer] SENIOR SUPPLEMENT MEDICARE [facility] MEDICARE [facility] [facility] MEDICARE [employer] Care Teams Block Breaker Relationship Specialty Start Date End Date Beni Silva II, MD [address] [place] [address] PCP - General Family Practice 07/25/22 Sawyer Lyon MD [address] [place] [address] Rheumatology 06/18/17 [place] [address] [facility] * [place] [address] Consulting Physician Gastroenterology 06/20/23 Anton Jackson MD [address] [place] [address] Internal Medicine 01/22/24
--- OUTSIDE RECORDS SUMMARY | 2024-10-06 14:44 | XMS_ITS | Encounter Summary ---
Author Organization [facility] Address 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
--- OUTSIDE RECORDS SUMMARY | 2024-10-06 14:44 | XMS_ITS | Clinical Summary ---
Author Organization [facility] Address [address] [place] [address] Phone Care Team Providers Care Software Engineering Manager Name Role Phone Que Wallace MD Primary Care Provider [phone] Allergies Active Allergy Reactions Criticality Noted Date Comments Cephalexin Abdominal Pain Low 03/19/2016 Erythromycin Abdominal Pain Low 03/19/2016 Latex Swelling Low 03/19/2016 Levofloxacin Itching,Hives High 02/07/2010 Reaction: Itching, Hives, Moxifloxacin Other (See Comments),Hives,Itching High 10/30/2017 Reaction: Itching, Van syndrome, Medications BIOTIN ORAL Take by mouth. Act drea 0mega-3 fatty acids-vitamin E (FISH OIL) 1,000 mg Capsule Take 2,000 mg by mouth 2 times daily. Active sertraline (ZOLOFT) 100 mg tablet Take 100 mg by mouth daily. Active multivitamin (DAILY-PEARL) tablet Take 1 Tablet by mouth daily. Active B.ANI/L.ACI/L.ANDREA /L.PLAN/L.BERNARDA (PROBIOTIC FORMULA ORAL) Take by mouth. A ctive meclizine (ANTIVERT) 25 mg tablet Take 25 mg by mouth 3 times daily as needed for Dizziness. Active DOCUSATE POTASSIUM ORAL Take 100 mg by mouth. Active SENNOSIDES (SENNA LAX ORAL) Take 2 Tablet by mouth. Active magnesium citrate solution Take 296 mL by mouth one time only. Active montelukast (SINGULAIR) 10 mg tablet Take 10 mg by mouth daily at bedtime. Active mometasone (NASONEX) 50 mcg/actuation [place], Non-Aerosol 2 Sprays daily. Active LUBIPROSTONE (AMITIZA ORAL) Take by mouth. Active metroNIDAZOLE (NORITATE) 1 % Cream Apply to affected area. Active diclofenac sodium (VOLTAREN) 1 % gel Apply to affected area 4 times daily. Active triamcinolone acetonide (KENALOG) 0.1 % Cream Apply to affected area 2 times daily. Active triamcinolone acetonide (KENALOG) 0.1 % Paste Apply to affected area 2 times daily. Active rizatriptan (MAXALT) 10 mg Tablet Take 1 Tablet (10 mg) by mouth 1 time daily as needed for Migraine may repeat in 2 hours; max dose 30mg in 24 hours. 9 Tablet 0 6 Active lidocaine (XYLOCAINE) 5 % Ointment 9 Active HYDROcodone-aceta minophen (NORCO) 10-325 mg Tablet TAKE HALF TO ONE TABLET BY MOUTH THREE TIMES DAILY NEEDED FOR 30 DAYS. 8 Active fluticasone propionate (FLONASE) 50 mcg/spray [place], Suspension nasal inhaler Administer 2 Sprays in each nostril. 0 Active fluticasone propion-salmetero L (ADVAIR DISKUS,WIXELA INHUB) 250-50 mcg/dose disk inhaler Take 1 Puff by inhalation. 1 Active fentaNYL (DURAGESIC) 12 mcg/hr patch 0 Active esomeprazole (NexIUM) 40 mg Capsule, Delayed Release(E.C.) Take 40 mg by mouth. 9 Active cholecalciferol, vitamin D3, 1,000 unit Take 1,000 Units by mouth. Active celecoxib (CeleBREX) 100 mg capsule Take 100 mg by mouth. 9 Active albuterol (PROVENTIL,VENTOL IN) 2.5 mg /3 mL (0.083 %) Solution for Nebulization Take 2.5 mg by inhalation. 0 Active albuterol HFA 90 mcg inhaler Take 2 Puffs by inhalation. 0 Active hydrOXYzine HCL (ATARAX) 10 mg tablet TAKE ONE TABLET BY MOUTH EVERY 8 HOURS NEEDED FOR ITCHING 8 Active Active Problems Problem Noted Date Diagnosed Date Depression 03/19/2016 Family History Medical History Relation Name Comments Breast Cancer Maternal Aunt High Cholesterol Mother Osteoporosis Mother Relation Name Status Comments Father Maternal Aunt Mother Alive Social History Tobacco Use Types Packs/Day Years Used Date Smoking Tobacco: Never Smokeless Tobacco: Never Alcohol Use Standard Drinks/Week Comments Yes 0 (1 standard drink = 0.6 oz pur e alcohol) rarely Comments No Sex and Gender Information Value Date Recorded Sex Assigned at Not on file 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 Gender Identity Not on file Sexual Orientation Not on file Last Filed Vital Signs Vital Sign Reading Time Taken Comments Blood Pressure 132/80 11/07/2020 9:03 AM CDT Pulse - - Temperature 37 C (98.6 F) 03/19/2016 11:10 AM CDT Respiratory Rate - - Oxygen Saturation - - Inhaled Oxygen Concentration - - Weight 72.7 kg (160 lb 3.2 oz) 11/07/2020 9:03 A M CDT Height 160.7 cm (5' 3.25 ) 11/07/2020 9:03 AM CD T Body Mass Index 28.15 11/07/2020 9:03 AM CDT Plan of Treatment Health Maintenance Due Date Last Done Comments DTAP/TDAP/TD VACCINES (1 - Tdap) 1977 PNEUMOCOCCAL VACCINE 50+ YEA RS (1 of 2 - PCV) 1977 BREAST CANCER SCREENING 1998 FIT-DNA Q 3 years 2003 FIT/FOBT Q 1 year 2003 Flex Sig/CT Colonography Q 5 years 2003 ZOSTER VACCINE (1 of 2) 02/05/2008 RSV VACCINE (60+ or ) (1 - Risk 60-74 years 1-dose series) 2018 INFLUENZA VACCINE (#1) 2024 0, 03/31/2018, 04/01/2017, Additional history exists COLORECTAL SCREENING 05/16/2026 05/16/2016 Colorectal Cancer Screening 05/16/2026 OSTEOPOROSIS SCREENING Completed 11/09/2015 Insurance MEDICARE PART A AND B BC[employer] [address] [place] [id number] Care Teams Software Engineering Manager Relationship Specialty Start Date End Date Que aWllace MD [address] [place] [address] PCP - General Family Practice 11/07/20
--- OUTSIDE RECORDS SUMMARY | 2024-10-06 14:44 | XMS_ITS | Encounter Summary ---
Author Organization [facility] Address [address] [place] [address] Care Team Providers Care Mixing Plant Dumper Name Role Phone Que Wallace MD Primary Care Provider [phone] Encounter Details Date Type Department Care Team (Latest Contact Info) Description 09/30/2000 Outpatient Historical [facility] Other convulsions (Primary Dx) Social History Tobacco Use Types Packs/Day Years Used Date Smoking Tobacco: Never Assessed Comments Unknown Sex and Gender Information Value Date Recorded Sex Assigned at Not on file Legal Sex Female 4:03 AM [employer] Gender Identity Not on file Sexual Orientation Not on file documented as of this encounter Plan of Treatment Not on file documented as of this encounter Visit Diagnoses Diagnosis Other convulsions- Primary documented in this encounter Care Teams Mixing Plant Dumper Relationship Specialty Start Date End Date Que Wallace MD [address] [place] [phone] PCP - General Family Practice 11/07/20 documented as of this encounter
--- OUTSIDE RECORDS SUMMARY | 2024-10-06 14:44 | XMS_ITS | Encounter Summary ---
Author Organization [facility] Address 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
--- OUTSIDE RECORDS SUMMARY | 2024-10-06 14:45 | XMS_ITS | Clinical Summary ---
Author Organization [facility] Address [address] [facility] [place] [address] Care Team Providers Care Antisqueak Filler Name Role Phone Que Wallace MD Primary Care Provider Unav ailable Source Comments [facility],non-owned Affiliates and Associated Physician Practices is amultiple site organization consisting of ambulatory clinics and hospital sitesin [place], [place], [place] and [place]. This disclosure is being madepursuant to the Care Everywhere program and may not contain all information available regarding this patient. Last updated 18.[facility] Allergies Active Allergy Reactions Criticality Noted Date Comments Latex 02/07/2010 Levaquin 02/07/2010 Medications * Be aware that medications may not be up to date on this document. Alwaysverify current medications with the patient. Medication Sig Dispensed Refills Start Date End Date Status alprazolam (XANAX) 0.5 MG tablet Take 0.5 mg by mouth 4 times daily as needed for Anxiety. Active hydrocodone-acetamin ophen (LORTAB) 10-500 MG tablet Take 1 Tab by mouth 4 times daily as needed for Pain. Active propoxyphene napsylate-acetaminop hen (DARVOCET N-100) 100-650 MG tablet Take 1 Tab by mouth 4 times daily as needed for Pain. Active sertraline (ZOLOFT) 100 MG tablet Take 100 mg by mouth daily. Active COSAMIN DS PO Take 25 mg by mouth 3 times daily as needed 1-2 caps Active lidocaine (XYLOCAINE) 5 % ointment Apply to affected area 2 times daily. Active rizatriptan (MAXALT) 10 MG tablet Take 10 mg by mouth once as needed for Migraine. Active diltiazem coated beads 24hr (CARDIZEM CD) 300 MG capsule Take 300 mg by mouth daily. Active FEXOFENADINE HCL PO Take 80 mg by mouth daily. Active hydrOXYzine pamoate (VISTARIL) 25 MG capsule Take 25 mg by mouth 3 times daily as needed 1-2 cap Active esomeprazole (NEXIUM) 40 MG capsule Take 40 mg by mouth daily before breakfast. 1-2 caps Active colesevelam (WELCHOL) 625 MG tablet Take 625 mg by mouth 2 times daily with breakfast and dinner. 6 tabs Active metronidazole (NORITATE) 1 % cream Apply to affected area daily. Active montelukast (SINGULAIR) 10 MG tablet Take 10 mg by mouth at bedtime. Active mometasone (NASONEX) 50 MCG/ACT nasal spray Chelsea 1 Chelsea into each nostril 2 times daily. Active fluticasone-salmeter ol (ADVAIR DISKUS) 250-50 MCG/DOSE inhaler Inhale 1 Puff by mouth 2 times daily. Active PROVENTIL HFA IN Inhale by mouth. Ac tive fluticasone hfa (FLOVENT HFA) 220 MCG/ACT inhaler Inhale 1 Puff by mouth 2 times daily. Active metronidazole (METROGEL) 0.75 % gel Apply to affected area 2 times daily. Active triamcinolone 0.1 % cream - AQUAPHOR Ointment 50:50 with LCD 5 % Apply to affected area 2 times daily as needed Active loteprednol etabonate (ALREX) 0.2 % ophthalmic suspension 1 Drop 4 times daily. Active Difluprednate (DUREZOL) 0.05 % EMUL by Ophthalmic route. Acti ve BENEFIBER PLUS CALCIUM POWD Take by mouth. Active MULTIVITAMIN PO Take by mouth daily. Active polyethylene glycol 3350 (MIRALAX) packet Take 17 g by mouth daily. Active ZEB PO Take by mouth. Active OMEGA 3-6-9 FATTY ACIDS PO Take by mouth. Active Calcium-Vitamin D (OSCAL 500/200 D-3) 500 MG TABS Take by mouth. Active Senna 15 MG TABS Take by mouth. Acti ve docusate sodium (COLACE) 100 MG capsule Take 100 mg by mouth daily. Active tizanidine (ZANAFLEX) 4 MG tabletIndications:Fi bromyalgia Take 1 Tab by mouth every 6 hours as needed for Muscle Spasms. 30 12 02/07/2010 Active duloxetine (CYMBALTA) 60 MG capsuleIndications:F ibromyalgia Take 1 Cap by mouth daily. 30 12 02/07/2010 Active pregabalin (LYRICA) 50 MG capsuleIndications:F ibromyalgia Take 1 Cap by mouth 2 times daily. 60 12 02/07/2010 Active trazodone (DESYREL) 300 MGIndications:Fibrom yalgia Take 0.5 Tabs by mouth at bedtime. 30 12 02/07/2010 Active celecoxib (CELEBREX) 200 MG capsuleIndications:R heumatoid arthritis(714.0) (HCC) Take 1 Cap by mouth 2 times daily. 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 02/08/2010 Overview (02/08/2010): Positive CLINICAL RN normal CRP Fibromyalgia 02/07/2010 Rheumatoid arthritis 02/07/2010 Overview (05/15/2015): Plaquenil kineret mtx arava remicade all problematic 03/10/2010 avise MCV negative Raynaud's disease 02/07/2010 Social History Tobacco Use Types Packs/Day Years Used Date Smoking Tobacco: Never Smokeless Tobacco: Never Alcohol Use Standard Drinks/Week Comments Yes 2.5 (1 standard drink = 0.6 oz p ure alcohol) occ wine Sex and Gender Information Value Date Recorded Sex Assigned at Not on file Gender Identity Not on file Sexual Orientation Not on file Last Filed Vital Signs Vital Sign Reading Time Taken Comments Blood Pressure 90/64 02/07/2010 1:56 PM CDT Pulse 76 03/03/2017 10:37 AM CDT Temperature 36.4 C (97.6 F) 03/03/2017 10:37 AM CDT Respiratory Rate 16 03/03/2017 10:37 AM CDT Oxygen Saturation 97% 03/03/2017 10:37 AM CDT Inhaled Oxygen Concentration - - Weight 66.2 kg (146 lb) 03/03/2017 10:37 AM CDT Height 162.6 cm (5' 4 ) 03/03/2017 10:37 AM CDT Body Mass Index 25.06 03/03/2017 10:37 AM CDT Plan of Treatment Health Maintenance Due Date Last Done Comments BONE DENSITY TESTING 1958 COLOGUARD (AGES 45-75) - COL ON CA SCREENING 1958 COLON MONITORING 1958 COLONOSCOPY - COLON CA SCREENING 1958 CT COLONOGRAPHY - COLON CA SCREENING 1958 Colorectal Cancer Screening 1958 FIT - COLON CA SCREENING 1958 FLEX SIG - COLON CA SCREENING 1958 LIPID TESTING 1958 MAMMOGRAM 1958 MEDICARE AWV 12 MONTHS 1958 HEPATITIS C SCREENING 01/31/1976 DTAP/TDAP/TD VACCINES (1 - Tdap) 1977 PNEUMOCOCCAL VACCINE 50+ (1 of 1 - PCV) 02/05/2008 ZOSTER VACCINE (1 of 2) 02/05/2008 COVID-19 VACCINE (1 - 2023-2 5 season) 2024 INFLUENZA VACCINE (#1) 2024 DEPRESSION SCREENING 07/08/2024 Respiratory Syncytial Virus (RSV) Vaccine Pt: or over 60 yrs (1 - 1-dose 75+ series) 2033 HEPATITIS B VACCINE Aged Out No longe r eligible based on patient's age to complete this topic HIB VACCINE Aged Out No longer eligi ble based on patient's age to complete this topic HPV VACCINE Aged Out No longer eligi ble based on patient's age to complete this topic MENINGOCOCCAL (Group B) VACC INE SHARED DECISION-MAKING Aged Out No longer eligibl e based on patient's age to complete this topic MENINGOCOCCAL GROUPS A/C/Y/W VACCINE Aged Out No longer eligible b ased on patient's age to complete this topic Care Teams Antisqueak Filler Relationship Specialty Start Date End Date Que Wallace MD PCP - General Family Medicine 12/11/16
--- OUTSIDE RECORDS SUMMARY | 2024-10-06 14:45 | XMS_ITS | CONTINUITY OF CARE DOCUMENT ---
Author Name mahogany vides Address Unknown Organization [facility] Office Address [address] [place] [address] Phone [phone] Care Team Providers Care Editor Continuity And Script Name Role Phone mahogany vides Unavailable Unavailable
--- OUTSIDE RECORDS SUMMARY | 2024-10-06 14:45 | XMS_ITS | Encounter Summary ---
Author Organization [facility] Care Team Providers Care Station Captain Name Role Phone Que Wallace MD Primary Care Provider [phone] Paul Hart MD Primary Care Provider [phone] Sawyer Lyon MD Unavailable [phone] Que Wallace MD Primary Care Provider [phone] Shira SOLORZANO MD, Beni Hernandez Primary Care Provid er Andre Hernandez MD Unavailable [phone] Anton Jackson MD Unavailable [phone] Encounter Details Date Type Department Care Team (Latest Contact Info) Description 09/21/2015 Orders Only [facility] CLINCONV ProviderLaverne MD [address] [place] [id number] Social History Tobacco Use Types Packs/Day Years Used Date Smoking Tobacco: Never Alcohol Use Standard Drinks/Week Comments Yes 0 (1 standard drink = 0.6 oz pur e alcohol) Comments Unknown Sex and Gender Information Value Date Recorded Sex Assigned at Not on file Legal Sex Female 11:32 PM SENIOR ACCOUNTING ANALYST Gender Identity Not on file Sexual Orientation Not on file documented as of this encounter Plan of Treatment Not on file documented as of this encounter Procedures Procedure Name Priority Date/Time Associated Diagnosis Comments SCAN - LABS 06/07/2016 12:00 AM SENIOR ACCOUNTING ANALYST documented in this encounter Results * SCAN - LABS (06/07/2016 12:00 AM SENIOR ACCOUNTING ANALYST) Narrative 06/07/2016 12:00 AM SENIOR ACCOUNTING ANALYST Ordered by an unspecified provider. us Historical Provider Final Res ult documented in this encounter Visit Diagnoses Not on filedocumented in this encounter Additional Health Concerns Infection Onset Date Last Indicated Resolved Time COVID: Suspected 05/05/2020 05/05/2020 05/19/2020 3:06 AM SENIOR ACCOUNTING ANALYST documented as of this encounter Care Teams Station Captain Relationship Specialty Start Date End Date Que Wallace MD PCP - General 01/03/09 04/08/17 Paul Hart MD PCP - General 04/09/17 08/25/17 Que Wallace MD PCP - General 08/26/17 07/24/22 Beni Silva II, MD [address] [place] [address] PCP - General Family Practice 07/25/22 Sawyer Lyon MD [address] [place] [address] Rheumatology 06/18/17 [place] [address] [address] [place] [address] Consulting Physician Gastroenterology 06/20/23 Anton Jackson MD [address] [place] [address] Internal Medicine 01/22/24 documented as of this encounter
--- OUTSIDE RECORDS SUMMARY | 2024-10-06 14:45 | XMS_ITS | Clinical Summary ---
Author Organization [facility] Address [facility] [place] [address] Care Team Providers Care Farm Machinery Engine Mechanic Name Role Phone Shira SOLORZANO MD, Beni Villanueva Primary Care Provider Allergies Active Allergy Reactions Criticality Noted Date Comments Cephalexin Other (see comment),Diarrhea,GI Upset Low 03/19/2016 Reaction: Abdominal pain, Diarrhea, Erythromycin Other (see comment),Diarrhea,GI Upset Low 03/19/2016 Reaction: Abdominal pain, Diarrhea, Latex Other (see comment),Swelling Low 02/07/2010 Reaction: Bleeding, Swelling, Levofloxacin Hives,Itching High 02/07/2010 Reaction: Itching, Hives, Reaction: Itching, Hives, Moxifloxacin Other (see comment),Hives,Itching High 10/30/2017 Reaction: Itching, Van syndrome, Reaction: Itching, Van syndrome, Medications fish oil 1000 MG Cap capsule Take 2 capsules (2,000 mg total) by mouth daily. Active Biotin 1 MG Cap Take by mouth daily. Active Nutritional Supplements (COSAMIN DS OR) Take 25 mg by mouth 3 (three) times daily as needed. Active Multiple Vitamins-Minerals (JAVIER MULTIVITAMIN) Powder Take 1 tablet by mouth daily. Active albuterol sulfate HFA 108 (90 Base) MCG/ACT inhaler Inhale 2 puffs into the lungs daily as needed. 0 Active vitamin D3, cholecalciferol, 1000 UNIT Tab tablet Take 1 tablet (1,000 Units total) by mouth daily. Depends if her caluim has viytamin d or not Active diclofenac sodium 1 % gel Apply topically as needed. Active fentaNYL 12 mcg/hr Place 1 patch onto the skin every third day. 0 Active ADVAIR DISKUS 250-50 MCG/DOSE inhaler Inhale 1 puff into the lungs 2 (two) times daily. 1 Active hydrocortisone 1 % cream as needed Active lidocaine 5 % ointment as needed. 1 Active triamcinolone 0.1 % cream Apply topically 2 (two) times daily. prn Active PREVIDENT 5000 BOOSTER PLUS 1.1 % Paste USE ONCE DAILY AT BEDTIME 1 Active tacrolimus 0.1 % ointmentIndicatio ns:Psoriasis Apply to psoriasis twice daily as needed for flairs. 30 g 5 1 Active hydrocortisone 2.5 % Lotion lotion 4 (four) times daily as needed. 2 Active naloxone 4 MG/0.1ML nasal spray 2 Active montelukast (SINGULAIR) 10 MG tablet Take 1 tablet (10 mg total) by mouth daily. 2 Active ipratropium-albut jacob (DUONEB) 0.5-2.5 (3) MG/3ML Solution every 6 (six) hours as needed. 2 Active fexofenadine (RITESH) 180 MG tablet Take 1 tablet (180 mg total) by mouth daily. Active Magnesium Malate 1250 (141.7 Mg) MG Tab Take by mouth daily. Active esomeprazole (NEXIUM) 40 MG capsuleIndication s:Gastroesophagea l reflux disease without esophagitis Take 1 capsule (40 mg total) by mouth daily. 90 capsule 3 2 Active vitamin B-12 (CYANOCOBALAMIN) (CYANOCOBALAMIN) 1000 mcg tablet Take 1 tablet (1,000 mcg total) by mouth daily. Active CANNABIDIOL OR Take by mouth nightly at bedtime. Active tiZANidine (ZANAFLEX) 4 MG tablet Take 1 tablet (4 mg total) by mouth as needed. Active meclizine (ANTIVERT) 25 MG tabletIndications :Vertigo Take 1 tablet (25 mg total) by mouth every 8 (eight) hours as needed. 30 tablet 1 3 Active evolocumab (REPATHA) 140 MG/ML injection (SYRINGE)Indicati ons:Dyslipidemia INJECT 1 SYRINGE EVERY 14 DAYS 2 mL 11 4 Active rizatriptan (MAXALT) 10 MG tabletIndications :Migraine without aura and without status migrainosus, not intractable Take 1 tablet (10 mg total) by mouth as needed for Migraine. May repeat in 2 hours if needed 30 tablet 3 4 Active cyclobenzaprine (FLEXERIL) 10 MG tablet Take 1 tablet (10 mg total) by mouth 3 (three) times daily as needed. 4 Active gabapentin (NEURONTIN) 100 MG capsule Take 1 capsule (100 mg total) by mouth as needed. 4 Active celecoxib (CELEBREX) 100 MG capsuleIndication s:Rheumatoid arthritis of multiple sites with negative rheumatoid factor (CMS/HCC HHS/HCC) TAKE 1 CAPSULE(100 MG) BY MOUTH TWICE DAILY 180 capsule 3 4 Active AMITIZA 8 MCG capsule Take 60 capsules (480 mcg total) by mouth daily with breakfast. 4 Active fluticasone propionate (FLONASE) 50 MCG/ACT nasal sprayIndications: Allergic rhinitis, unspecified seasonality, unspecified trigger SHAKE LIQUID AND USE 2 SPRAYS IN EACH NOSTRIL DAILY 48 g 3 4 Active hydrOXYzine (ATARAX) 10 MG tabletIndications :Anxiety TAKE 1 TABLET(10 MG) BY MOUTH EVERY 4 HOURS NEEDED 60 tablet 3 4 Active lisinopril (PRINIVIL) 5 MG tabletIndications :Primary hypertension TAKE 1 TABLET(5 MG) BY MOUTH DAILY 90 tablet 3 5 Active ALPRAZolam (XANAX) 0.5 MG tabletIndications :Primary insomnia Take 1 tablet (0.5 mg total) by mouth nightly as needed for Sleep. 30 tablet 5 Active sertraline (ZOLOFT) 100 MG tabletIndications :Persistent depressive disorder Take 2 tablets (200 mg total) by mouth daily. 180 tablet 3 5 Active DUPIXENT 300 MG/2ML injection Inject 2 mLs (300 mg total) into the skin every 14 (fourteen) days. 5 Active predniSONE (DELTASONE) 5 mg tabletIndications :Viral pharyngitis Take 1 tablet (5 mg total) by mouth daily for 10 days. 10 tablet 5 09/13/19 25 clindamycin (CLEOCIN) 300 MG capsuleIndication s:Cellulitis of toe of right foot Take 1 capsule (300 mg total) by mouth 3 (three) times daily for 10 days. 30 capsule 5 09/13/19 25 Active Problems Problem Noted Date Diagnosed Date Chronic pain syndrome 10/16/2023 Overweight (BMI 25.0-29.9) 06/06/2023 Hiatal hernia 06/06/2023 Primary hypertension 10/06/2021 Prurigo nodularis 09/15/2021 Prediabetes 06/08/2021 Age-related nuclear cataract of both eyes 2018 Overview (11/03/2021): Last Assessment & Plan: NVS, monitor Chronic obstructive pulmonary disease ([facility] /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) 06/16/2014 Overview (11/03/2021): Asthma Irritable bowel syndrome 06/16/2014 Overview (11/03/2021): IBS Fibromyalgia GERD (gastroesophageal reflux disease) Depression Rheumatoid arthritis ([facility]) Hyperlipidemia Migraines Resolved Problems Problem Noted Date Diagnosed Date Resolved Date Statin intolerance 02/11/2024 4 Encounters Date Type Department Care Team Description 09/23/[address] [address] Beni Silva II, MD Medication 09/02/2024 8:10 AM MOBILE SALES TECHNICIAN Office Visit [address] [address] Beni Silva II, MD Health Maintenance Follow Up (Patient presents for health maintenance to follow up for anxiety and depression) 09/02/2024 Travel 08/11/2024 9:30 AM MOBILE SALES TECHNICIAN Office Visit [address] [address] Beni Silva II, MD Anxiety (Anxiety that increased last Saturday ); Depression (Some thoughts of suicide but no active plans when she feels in a dark place episode) 08/11/2024 Travel 08/05/2024 Orders Only [address] [address] Beni Silva II, MD 08/05/[address] [phone] Beni Silva II, MD Medication Request 07/27/2024 9:30 AM MOBILE SALES TECHNICIAN Office Visit [address] [address] Beni Silva II, MD Health Maintenance Follow Up (Patient presents for health maintenance to follow up for prediabetes with A1C) 07/27/2024 Travel from Last 3 Months Immunizations Name Administration Dates Next Due Fluzone 6 Months+ Quad (0.5 mL Prefilled Syringe) 04/05/2022,03/30/2021 Fluzone High Dose (IIV, trivalent, 0.5mL) 2023 Fluzone High Dose - >Age 65 (Prefilled Syringe) 04/26/2023 Influenza (Generic) 03/11/2020,04/01/2017 Influenza Adult (Generic) 03/11/2020,03/31/2018, 04/01/2017 MODERNA COVID-19 (LIBRARIAN HELPER QUYNH ITALO), MRNA, LNP-S, PF, 50 MCG/ 0.25 ML DOSE 10/19/2021,04/28/2021 Shingrix 07/16/2022,05/15/2022 Family History Medical History Relation Comments Lung Disease Father Valve Disease Maternal Grandmother CHF Mother Hyperlipidemia Mother Hypertension Mother Hypertension Paternal Grandfather Rheumatic Fever Paternal Grandmother Relation Status Comments Brother Alive Father (Age 67) Maternal Grandfather Maternal Grandmother Mother (Age 96) Paternal Grandfather (Age 82) Paternal Grandmother (Age 62) Sister Alive Social History Tobacco Use Types Packs/Day Years Used Date Smoking Tobacco: Never Smokeless Tobacco: Never Tobacco Cessation:Counseling Given: No Alcohol Use Standard Drinks/Week Comments Yes 0 (1 standard drink = 0.6 oz pur e alcohol) very rarely PHQ-2 Answer Date Recorded Patient Health Questionnaire-2 Score 4 08/11/2024 Comments Unknown Sex and Gender Information Value Date Recorded Sex Assigned at Not on file Legal Sex Female 11:15 AM CDT Gender Identity Not on file Sexual Orientation Not on file Last Filed Vital Signs Vital Sign Reading Time Taken Comments Blood Pressure 112/72 09/02/2024 8:00 AM MOBILE SALES TECHNICIAN Pulse 75 09/02/2024 8:00 AM MOBILE SALES TECHNICIAN Temperature 36.2 C (97.1 F) 09/02/2024 8:00 AM MOBILE SALES TECHNICIAN Respiratory Rate 16 08/11/2024 9:23 AM MOBILE SALES TECHNICIAN Oxygen Saturation 98% 09/02/2024 8:00 AM MOBILE SALES TECHNICIAN Inhaled Oxygen Concentration - - Weight 73 kg (161 lb) 09/02/2024 8:00 AM MOBILE SALES TECHNICIAN Height 162.6 cm (5' 4 ) 04/20/2024 8:35 AM CDT Body Mass Index 27.64 04/20/2024 8:35 AM CDT Plan of Treatment Upcoming Encounters Date Type Department Care Team (Late st Contact Info) Description 10/13/2024 8:30 AM CDT Office Visit [facility] - [place] [phone] Beni Silva II, MD [address] [place], [place] [phone] 01/25/2025 9:15 AM CDT Office Visit [facility] [address] [place] [address] Anton Jackson MD Three [facility], [address] [place], [place] [id number] 01/26/2025 8:30 AM CDT Office Visit [facility] - [place] [address] [place] [address] Beni Silva II, MD [address] [place], [place] [id number] Health Maintenance Due Date Last Done Comments Pneumococcal Vaccine: 65+ Years (1 of 2 - PCV) 02/05/1966 DTaP, Tdap and Td Vaccines (1 - Tdap) 1977 Mammogram Screening 1998 RSV Immunization or 60+ Years (1 - Risk 60-74 years 1-dose series) 2018 Annual Medicare Wellness Visit 2023 COVID-19 Vaccine ( season) 2024 03/13/2024, 04/12/2023, 11/22/2022, Additional history exists Colorectal Cancer Screening Colonoscopy (10 Years) 09/04/2033 09/05/2023, 05/16/2016, 09/11/2010 Hepatitis C Completed 07/13/2016 Zoster Vaccines Completed 07/16/2022, 05/15/2022 Dexa Scan (General) Completed 11/14/2022, 6 PHQ-2 (Physician [place]) Completed 08/11/2024 Meningococcal B Vaccine Aged Out No l onger eligible based on patient's age to complete this topic Meningococcal Vaccine Aged Out No alberto kali eligible based on patient's age to complete this topic RSV Immunizations Under 20 Months Aged Out No longer eligible based on patient's age to complete this topic Procedures Procedure Name Priority Date/Time Associated Diagnosis Comments COLLECT.CAPILLARY (FNGR,HEEL,EAR) Routine 07/27/2024 3:13 PM MOBILE SALES TECHNICIAN Prediabetes HEMOGLOBIN, GLYCOSYLATED Routine 07/27/2024 Prediabetes COLONOSCOPY GENERIC (SCAN ORDER) 09/05/2023 BONE DENSITY/DEXA Routine 11/14/2022 9:2 0 AM CDT Osteoporosis, unspecified osteoporosis type, unspecified pathological fracture presence from Last 3 Months or Most Recently Relevant to Health Maintenance Results * A1C (BACK OFFICE) (07/27/2024) HGB A1C 6.1 % [facility] 07/27/2024 Beni Silva II, MD LABORATORY Final R esult [facility] [address] [place] [address], [place] [phone] * COLONOSCOPY GENERIC (SCAN ORDER) (09/05/2023) 09/05/2023 [facility] Scanned SCANNING Final Resu lt * BONE DENSITY/DEXA (11/14/2022 9:20 AM CDT) Anatomical Region Laterality Modality Bone Mammography 11/16/2022 12:5 5 AM CDT Impressions 11/16/2022 12:56 AM CDT IMPRESSION: WHO Classification: normal. FRAX: 1.2% chance of hip fracture and 15% chance of major osteoporotic fracture over the next 10 years. Referred By: VAMSHI CASTREJON Interpreted By: Miky Sarabia MD, 11/16/2022 12:55 AM Narrative 11/16/2022 12:56 AM CDT Examination: Bone Density Axial Exam Date/Time: 11/14/2022 9:02 AM Reason For Exam: Osteoporosis, postmenopausal Comparison: None Findings: DEXA bone densitometry The bone mineral density (BMD) was determined by dual-energy x-ray absorptiometry, the results are as follows: AP Lumbar Spine L1 through L4 BMD Patient (GM/SQCM): 1.118 T-Score (Standard deviations from young adult peak bone density): 0.6 Right femoral neck: BMD Patient (GM/SQCM): 0.760 T-Score (Standard deviations from young adult peak bone density): -0.8 Total Right femur: BMD Patient (GM/SQCM): 0.971 T-Score (Standard deviations from young adult peak bone density): 0.2 Recommendations: All patients should ensure an adequate intake of dietary calcium and vitamin D. The NOF recommend adults under the age of 50 need 1000 mg of calcium and 400-800 IU of vitamin D daily. Effective therapy for the prevention and treatment of osteoporosis include biphosphonates. Follow-up: People with diagnosed cases of osteoporosis or at high risk for fracture should have regular bone mineral density test. For patients eligible for Medicare, routine testing is allowed once every 2 years. Testing frequency can be increased to one year for patients who have rapidly progressing disease, those who are receiving or discontinuing medical therapy to restore bone mass, or have additional risk factors. Procedure Note Miky Sarabia MD - 11/16/2022 Examination: Bone Density Axial Exam Date/Time: 11/14/2022 9:02 AM Reason For Exam: Osteoporosis, postmenopausal Comparison: None Findings: DEXA bone densitometry The bone mineral density (BMD) was determined bydual-energy x-ray absorptiometry, the results are as follows: AP Lumbar Spine L1 through L4 BMD Patient (GM/SQCM): 1.118 T-Score (Standard deviations from young adult peak bonedensity): 0.6 Right femoral neck: BMD Patient (GM/SQCM): 0.760 T-Score (Standard deviations from young adult peak bonedensity): -0.8 Total Right femur: BMD Patient (GM/SQCM): 0.971 T-Score (Standard deviations from young adult peak bonedensity): 0.2 Recommendations: All patients should ensure an adequate intake of dietary calcium andvitamin D. The NOF recommend adults under the age of 50 need 1000 mg ofcalcium and 400-800 IU of vitamin D daily. Effective therapy for theprevention and treatment of osteoporosis include biphosphonates. Follow-up: People with diagnosed cases of osteoporosis or at high risk for fractureshould have regular bone mineral density test. For patients eligible forMedicare, routine testing is allowed once every 2 years. Testing frequencycan be increased to one year for patients who have rapidly progressingdisease, those who are receiving or discontinuing medical therapy torestore bone mass, or have additional risk factors. IMPRESSION: WHO Classification: normal. FRAX: 1.2% chance of hip fracture and 15% chance of major osteoporoticfracture over the next 10 years. Referred By: VAMSHI CASTREJON Interpreted By: Miky Sarabia MD, 11/16/2022 12:55 AM us Vamshi Castrejon MD DEXA Final Result from Last 3 Months or Most Recently Relevant to Health Maintenance Insurance MEDICARE [place] [address] [place] [address] Care Teams Farm Machinery Engine Mechanic Relationship Specialty Start Date End Date Beni Silva II, MD [address] [place] [id number] PCP - General FAMILY PRACTICE 04/27/21
--- OUTSIDE RECORDS SUMMARY | 2024-10-06 14:45 | XMS_ITS | Encounter Summary ---
Author Organization [facility] Care Team Providers Care Supervisor Machine Setter Name Role Phone Que Wallace MD Primary Care Provider [phone] Paul Hart MD Primary Care Provider [phone] Sawyer Lyon MD Unavailable [phone] Que Wallace MD Primary Care Provider [phone] Shira SOLORZANO MD, Beni Hernandez Primary Care Provid er Andre Hernandez MD Unavailable [phone] Anton Jackson MD Unavailable [phone] Encounter Details Date Type Department Care Team (Latest Contact Info) Description 12/06/2016 Orders Only [facility] ProviderLaverne MD [address] [place] [id number] Social History Tobacco Use Types Packs/Day Years Used Date Smoking Tobacco: Never Alcohol Use Standard Drinks/Week Comments Yes 0 (1 standard drink = 0.6 oz pur e alcohol) Comments Unknown Sex and Gender Information Value Date Recorded Sex Assigned at Not on file Legal Sex Female 11:32 PM METAL SPRAYER PRODUCTION Gender Identity Not on file Sexual Orientation Not on file documented as of this encounter Plan of Treatment Not on file documented as of this encounter Procedures Procedure Name Priority Date/Time Associated Diagnosis Comments SCAN - LABS 07/18/2016 12:00 AM METAL SPRAYER PRODUCTION documented in this encounter Results * SCAN - LABS (07/18/2016 12:00 AM METAL SPRAYER PRODUCTION) Narrative 07/18/2016 12:00 AM METAL SPRAYER PRODUCTION Ordered by an unspecified provider. us Historical Provider Final Res ult documented in this encounter Visit Diagnoses Not on filedocumented in this encounter Additional Health Concerns Infection Onset Date Last Indicated Resolved Time COVID: Suspected 05/05/2020 05/05/2020 05/19/2020 3:06 AM METAL SPRAYER PRODUCTION documented as of this encounter Care Teams Supervisor Machine Setter Relationship Specialty Start Date End Date Que Wallace MD PCP - General 01/03/09 04/08/17 Paul Hart MD PCP - General 04/09/17 08/25/17 Que Wallace MD PCP - General 08/26/17 07/24/22 Beni Silva II, MD [address] [place] [address] PCP - General Family Practice 07/25/22 Sawyer Lyon MD [address] [place] [address] Rheumatology 06/18/17 [place] [id number] [address] * [place] [address] Consulting Physician Gastroenterology 06/20/23 Anton Jackson MD [address] [place] [address] Internal Medicine 01/22/24 documented as of this encounter
--- OUTSIDE RECORDS SUMMARY | 2024-10-06 14:45 | XMS_ITS ---
Author Organization [facility] Address [address] [place] [address] [address] [place] [address] Care Team Providers Care Loan Supervisor Name Role Phone Pascual Griffin Unavailable [phone] Social Media, Social Media Unavailable Unava Roberto Rodriguez Unavailable [phone] Medications Medication SIG (Take, Route, Frequency, Duration) Notes Start Date End Date Status fentaNYL 12 MCG/HR 1 patch to skin Transdermal every 72 hours for 30 days NEEDS MYLAN BRAND DO NOT MARCK UNTIL 10/15/24 09/29/2024 Active Encounters Encounter Location Date Provider Diagnosis [facility] [id number] [place] [address] [address] [place] [address] 09/29/2024 Roberto Mayer Plan Of Treatment Medication Medication Name Sig Start Date Stop Date Notes fentaNYL 12 MCG/HR 1 patch to skin Transdermal every 72 hours for 30 days 09/29/2024 NEEDS MYLAN BRAND DO NOT MARCK UNTIL 10/15/24 Next Appt Details Provider Name:Elzbieta brooks, 10/27/2024 09:00:00 AM, [address] [place] [address], [address], [place], [address], Progress Notes * Shilpa WAYNEDOB: (64 yo F)Acc No.[id number]:09/29/2024 Patient: Hammad YOOShilpa :1960 A ge:64 Y S ex:Female Address:[address] [place] [address], [place] [address] * Refills Refill fentaNYL Patch 72 Hour, 12 MCG/HR, Transdermal, 10 Patch, 1 patch to skin, every 72 hours, 30 days, Refills=0 * true * Date: Generated for Jackie davies/William/Winston on: 0 10/06/2024 02:44 PM CDT
--- OUTSIDE RECORDS SUMMARY | 2024-10-06 14:45 | XMS_ITS ---
Author Organization [facility] Address [address] [place] [address] Care Team Providers Care Director Of Women'S Services Name Role Phone Griffin Pascual Unavailable [phone] Social Media, Social Media Unavailable Unava ilable Deborah OSBORNE, Elzbieta Unavailable Medications Medication SIG (Take, Route, Frequency, Duration) Notes Start Date End Date Status Narcan 4 MG/0.1ML as directed Nasally for 1 days 05/27/2024 Active Lidocaine 5 % apply 4 g Externally Three times a day for 30 days 1 application to posterior neck and shoulder 3 x a day. Max 20g/ day. ovoid prolonged use in same area 06/17/2024 Active Meclizine HCl 25 MG Oral for 10 Days Active Repatha 140 MG/ML Subcutaneous for 84 Days Active Sertraline HCl 100 MG Oral for 90 Days Active Celecoxib 100 MG Oral for 90 Days Active Dupixent 300 MG/2ML Subcutaneous for 28 Days Active Cyclobenzaprine HCl 10 MG TAKE 1 TABLET BY MOUTH THREE TIMES A DAY NEEDED Oral for 30 Days Active Lisinopril 5 MG Oral for 90 Days Active Gabapentin 100 MG TAKE 1 CAPSULE BY MOUTH TWICE A DAY NEEDED Oral for 30 Days Active Albuterol Sulfate HFA 108 (90 Base) MCG/ACT Inhalation for 25 Days Active Advair Diskus 250-50 MCG/ACT INHALE 1 PUFF BY MOUTH TWICE DAILY. RINSE MOUTH WITH WATER AFTER USE. DO NOT SWALLOW Inhalation for 30 Days Active fentaNYL 12 MCG/HR 1 patch to skin Transdermal every 72 hours for 30 days NEEDS MYLAN BRAND DO NOT MARCK UNTIL 09/15/24 09/01/2024 Active Social History Tobacco Use: Social History Observation Description Date Details (start date - stop date) Former Smoker NA - NA Tobacco Control (Standard) Question Answer Notes Tobacco use: Former smoker Section Notes: SOAPP and COMM scores today low risk. Encounters Encounter Location Date Provider Diagnosis Telehealth [facility] [id number] [place] [address] [address] [place] [address] 09/29/2024 Elzbieta Cabrera Plan Of Treatment Next Appt Details Provider Name:Elzbieta brooks, 10/27/2024 09:00:00 AM, [id number] [place] [address], [address], [place], [address], Progress Notes * TONEShilpa KONG KrunalDOB: 8 (64 yo F)Acc No.[id number]:09/29/2024 Patient: Shilpa BOYLE Appointment Provider: ISHAAN Hermosillo :1960 A ge:64 Y S ex:Female Supervising Provider:Roberto Mayer MD Date:09/29/2024 Address:[address] [place], [place] [id number] Subjective: * Chief Complaints: * * HPI: * Established Patient: Established Patient Questionnaire: 1 . Are you currently taking a Blood Thinner Medication? N o 2 . Do you have an allergy to I.V. Contrast or Shellfish? N o 3 . List any changes to medical history. (eg; Falls, Test, Scans, Blood Work, and Hospitalizations) O ther 4 . Have you been exposed to anyone with COVID in the last 2 weeks? N o 5 . Have you been exposed to anyone with the FLU in the last 72 hours? N o 6 . What is your Pain Level today? (1-10, Scroll and select one) 5 7 . Where is your pain located? H ead,Neck,Left Shoulder,Right Shoulder,Right Arm,Right Hand,Finger,Top of Back,Mid Back,Low Back,Left Glute,Right Glute,Left Ankle,Right Ankle,Left Foot,Right Foot,Toes 8 . After your last visit, what Percentage of improvement did you experience? 6 0 9 . Are you doing Physical Therapy, Chiropractic, or Massage Therapy? Y es 1 0. Are you doing an at home Exercise Program? Y es 1 1. What activities or positions increase your Pain? (Scroll to select one or multiple) S tanding 1 2. What activities or positions decrease your Pain? (Scroll to select one or multiple) L flori down 1 3. How would you describe your Pain? (Scroll to select one or multiple) A jalil,Throbbing,Burning 1 4. Are you having difficulty sleeping? Y es 1 5. When was the last time you had your blood drawn? (Please enter your best estimate) ? 1 6. When was your last Mammogram? (Please put N/A if you are male, for Females please put the best Estimate or Never. ) [phone] 1 7. When was your last Colonoscopy? (Please put the best Estimate or Never. ) 1 8. Do you need any refills on your medications today? Y es 1 9. Please list ALL changes to Medications or Allergies? N one 2 0. Are you Diabetic? N o 2 1. Do you suffer from Constipation? Y es * Medical History: * Social History: T obacco Use: T [...] MYLAN BRAND DO NOT MARCK UNTIL 09/15/24 Objective: * Vitals: Assessment: Plan: * Treatment: * Billing Information: * Visit Code: * Procedure Codes: * Electronic signature of Clau Mayer MD on 10/06/2024 at 02:45 PM CDT Sign off status: Pending * Appointment Provider: ISHAAN Hermosillo Date: 0 09/29/2024 Generated for Printing/Faxing/eTransmitting on: 0 10/06/2024 02:45 PM CDT History and Physical Notes * HPI (History of Present Illness) Category Sub-Category Detail Notes Category Not es *Established Patient Established Patient Questionnaire: 1. Are you currently taking a Blood Thinner Medication?: No 2. Do you have an allergy to I.V. Contra st or Shellfish?: No 3. List any changes to medic al history. (eg; Falls, Test, Scans, Blood Work, and Hospitalizations): Other 4. Have you been exposed to anyone with COVID in the last 2 weeks?: No 5. Have you been exposed to anyone with the FLU in the last 72 hours?: No 6. What is your Pain Level today? (1-10, Scroll and select one): 5 7. Where is your pain locate d?: Head,Neck,Left Shoulder,Right Shoulder,Right Arm,Right Hand,Finger,Top of Back,Mid Back,Low Back,Left Glute,Right Glute,Left Ankle,Right Ankle,Left Foot,Right Foot,Toes 8. After your last visit, wh at Percentage of improvement did you experience?: 60 9. Are you doing Physical Therapy, Chiro practic, or Massage Therapy?: Yes 10. Are you doing an at home Exercise Pr ogram?: Yes 11. What activities or posit ions increase your Pain? (Scroll to select one or multiple): Standing 12. What activities or posit ions decrease your Pain? (Scroll to select one or multiple): Lying down 13. How would you describe y our Pain? (Scroll to select one or multiple): Aching,Throbbing,Burning 14. Are you having difficulty sleeping?: Yes 15. When was the last time y ou had your blood drawn? (Please enter your best estimate): ? 16. When was your last Mammo gram? (Please put N/A if you are male, for Females please put the best Estimate or Never. ): [phone] 17. When was your last Colon oscopy? (Please put the best Estimate or Never. ): 09/2023 18. Do you need any refills on your medi cations today?: Yes 19. Please list ALL changes to Medicatio ns or Allergies?: None 20. Are you Diabetic?: No 21. Do you suffer from Constipation?: Ye s
--- OUTSIDE RECORDS SUMMARY | 2024-10-06 14:45 | XMS_ITS | Clinical Summary ---
Author Organization [facility] [address] Address [facility] [place] [address] Phone Care Team Providers Care Stacking Machine Operator Name Role Phone Sawyer Lyon MD Unavailable [phone] Shira SOLORZANO MD, Beni Hernandez Primary Care Provid er Andre Hernandez MD Unavailable [phone] OchAnton sprague MD Unavailable [phone] Allergies Active Allergy Reactions Criticality Noted Date [...] area(s) 0 0 06/15/20 14 Active omega 8-mti-diq-fish oil (FISH OIL) 100-160-1,000 mg capsule 0 [...] 1 mg. 0 0 07/16/19 17 Active khorf-l-owrhocrul dase (BEANO) 150 unit tablet As needed [...] 11/05/19 13 Active vit C-s.mcgee-celery -grape sd 73-164-25-75-20 mg capsule Active es[address]prazole DR (NexIUM) 40 [...] She initially was being evaluated by her wood caulker for symptoms of shortness of breath. On [...] day with multiple pairs of glasses from [facility] -reports she feels they can't get her [...] day with multiple pairs of glasses from [facility] -reports she feels they can't get her [...] needed. Assessment & Plan (07/23/2018 1:47 PM EMAIL CAMPAIGN MANAGER): She still has generalized pain essentially everywhere [...] needed. Assessment & Plan (09/05/2017 2:10 PM EMAIL CAMPAIGN MANAGER): Still with generalized pain everywhere and is [...] now. Assessment & Plan (07/23/2018 1:47 PM EMAIL CAMPAIGN MANAGER): She still has widespread pain, fatigue, and [...] exercises. Assessment & Plan (09/05/2017 2:17 PM EMAIL CAMPAIGN MANAGER): Has widespread pain, fatigue, poor sleep patterns. [...] immunological findings 02/08/2010 Overview (12/23/2017): Overview: Positive DIRECTOR CUSTOM normal CRP Raynaud's disease 02/07/2010 Immunizations Immunization Administration Dates Next Due Influenza, Quadrivalent, Spl it, Preservative Free, Intramuscular 03/11/2020,03/31/2018,04/01/2017 Influenza, Trivalent, IM (MDV) 05/01/2014,2012 Influenza, Trivalent, Preser vative Free, Intramuscular 04/13/2016,04/21/2015 Surgical History Surgery Date Site/Laterality Comments APPENDECTOMY Appendectomy CHOLECYSTECTOMY Cholecystectomy OTHER SURGICAL HISTORY Right Bunionectomy x2 OTHER SURGICAL HISTORY Peripheral Iridotomy x2 Medical History Medical History Date Comments Sinusitis IBS (irritable bowel syndrome) Asthma Migraines GERD (gastroesophageal reflux disease) Hyperlipidemia Depression Anxiety Insomnia Diverticulitis Hearing loss Hypertension Family History Medical History Relation Name Comments Asthma Brother Asthma; Allergies Father Allergies; Skin cancer Father Cancer, skin; Allergies Mother Allergies; Hyperlipidemia Mother High choleste rol; Osteoporosis Mother Osteoporosis; Allergies Sister Allergies; Anxiety disorder Son 1 Anxiety; Depression Son 2 Depression; Relation Name Status Comments Brother Father Mother Sister Son 1 Son 2 Social History Tobacco Use Types Packs/Day Years Used Date Smoking Tobacco: Never Smokeless Tobacco: Never Tobacco Cessation:Counseling Given: Not Answered Alcohol Use Standard Drinks/Week Comments Not Currently 0 (1 standard drink = 0.6 oz pur e alcohol) Comments Unknown Sex and Gender Information Value Date Recorded Sex Assigned at Not on file Legal Sex Female 11:32 PM EMAIL CAMPAIGN MANAGER Gender Identity Not on file Sexual Orientation Not on file Obstetrics History Last Filed Vital Signs Vital Sign Reading Time Taken Comments Blood Pressure 125/73 05/14/2024 1:34 PM EMAIL CAMPAIGN MANAGER Pulse 73 05/14/2024 1:34 PM EMAIL CAMPAIGN MANAGER Temperature 36.3 C (97.4 F) 11/26/2023 9:21 AM CDT Respiratory Rate 16 05/14/2024 1:34 PM EMAIL CAMPAIGN MANAGER Oxygen Saturation 97% 05/14/2024 1:34 PM EMAIL CAMPAIGN MANAGER Inhaled Oxygen Concentration - - Weight 73.4 kg (161 lb 12.8 oz) 05/14/2024 1:34 PM EMAIL CAMPAIGN MANAGER Height 163.8 cm (5' 4.5 ) 05/14/2024 1:34 PM EMAIL CAMPAIGN MANAGER Body Mass Index 27.34 05/14/2024 1:34 PM EMAIL CAMPAIGN MANAGER Plan of Treatment Health Maintenance Due Date Last Done Comments Breast Cancer Screening-Mammogram 1960 Colon Cancer Screening-Colonoscopy 1960 Depression Screening 1960 Fall Risk Assessment 1960 DTaP/Tdap/Td Vaccine (1 - Tdap) 1969 Hepatitis B Screening 02/05/1976 Pneumococcal vaccine 65+ (1 of 2 - PCV) 1977 Well Visit 65+ 2023 Covid-19 Vaccine (3 - 2023-2 5 season) 2024 10/19/2021, 04/28/2021 Osteoporosis Screening-Bone Density Scan 11/14/2024 11/14/2022 Hepatitis C Screening Completed 07/13/2016 Zoster Vaccine Completed 07/16/2022, 05/15/2022 Influenza Vaccine Completed 04/09/2024, , 03/30/2021, Additional history exists Procedures Procedure Name Priority Date/Time Associated Diagnosis Comments HEPATITIS C ANTIBODY Routine 07/13/2016 12:51 PM EMAIL CAMPAIGN MANAGER from Last 3 Months or Most Recently Relevant to Health Maintenance Results * Hepatitis C antibody (07/13/2016 12:51 PM EMAIL CAMPAIGN MANAGER) SIGNAL TO CUT-OFF 0.03 <1.00 [facility] Comment: Test performed at [facility] [address] [place] [address] Director: ALEXANDRU RODRIGUEZ DO,MPH Hep C Ab NON-REACT SHEILA NON-REACT SHEILA [facility] 07/13/2016 12:5 1 PM EMAIL CAMPAIGN MANAGER [facility] MICROBIOLOGY - GENERAL OR DERABLES Final Result Performing Organization Address City/State/[facility] [place] Phone Number [facility] from Last 3 Months or Most Recently Relevant to Health Maintenance Insurance MEDICARE [facility] TRADITIONAL MEDICARE [facility] MEDICARE [facility] MEDICARE [facility] IDPR [facility] MEDICARE [facility] Care Teams Stacking Machine Operator Relationship Specialty Start Date End Date Beni Silva II, MD [address] [place] [address] PCP - General Family Practice 07/25/22 Sawyer Lyon MD [address] [place] [address] Rheumatology 06/18/17 [place] [id number] [facility] [place] [address] Consulting Physician Gastroenterology 06/20/23 Anton Jackson MD [address] [place] [address] Internal Medicine 01/22/24
== END 2024-10-06 13:26 | disposition home or self-care (01) ==
PROVIDERS: PCP Internal Medicine
DX: I10 Essential (primary) hypertension (principal)
CPT/HCPCS: 93005